=== PATIENT | male | born 1990 | race Caucasian/White ===

== ENCOUNTER 2017-01-19 16:56 | Emergency (ER) | payer OTHER ==
[~2017-01-19] VITALS: Ht 177.8 cm; Wt 69.3 kg
[~2017-01-19 16:56] MED LIST: AUGMENTIN875 MG PO; CYCLOBENZAPRINE10 MG PO; Desyrel PO; ESKALITH300 M1 PO; FLEXERIL10 MG PO; FLEXERIL5 MG PO; IBUPROFEN600 MG PO; MOTRIN800 MG PO; NABUMETONE750 MG PO; NAPROSYN500 MG PO; NO MEDS; PERCOCET 5/31 TABLET PO; SEROQUEL50 MG PO; SEROquel PO; TRAMADOL HCL50 MG PO; ULTRAM50 MG PO; VALIUM5 MG PO; Valium PO; ZOFRAN4 MG PO
[2017-01-19] MEDS ORDERED: MEDROL DOSEPAK4 MG PO (18:09)
[2017-01-19] MEDS ORDERED: ULTRAM50 MG PO (18:10)
[2017-01-19 18:39] VITALS: BP 100/73
== END 2017-01-19 18:40 | disposition home or self-care (01) ==
LOC: EME 16:56
DX: M25.562 Pain in left knee (principal); G89.29 Other chronic pain; M06.9 Rheumatoid arthritis, unspecified; F17.200 Nicotine dependence, unspecified, uncomplicated
CPT/HCPCS: 73564; 99281; 99284